=== PATIENT | female | born 1955 | race Caucasian/White ===

== ENCOUNTER 2018-04-02 12:14 | Day surgery (SDC) | payer BC ==
[2018-04-02] MEDS ORDERED: MIDAZOLAM HCL 2MG/2ML VIAL IV ONE (12:15)
[2018-04-02] MEDS ORDERED: LIDOCAINE 1% MDV (10MG/ML) 20ML VIAL SQ ONE (12:15)
[2018-04-02] MEDS ORDERED: FENTANYL PF 100MCG/2ML VIAL IV ONE (12:15)
--- NOTE | 2018-04-03 13:00 | Operative Note ---
DATE OF SURGERY: 04/02/2018 OPERATION: 1. ESOPHAGOGASTRODUODENOSCOPY with biopsy. 2. COLONOSCOPY with cold forceps polypectomy. PREOPERATIVE DIAGNOSIS: Globus sensation and colon cancer screening, average risk. POSTOPERATIVE DIAGNOSES: 1. Small hiatal hernia. 2. Gastric polyps. 3. Descending colon polyp. PREPARATION QUALITY: Good. ESTIMATED BLOOD LOSS: Minimum. SPECIMENS: Gastric polyps and descending colon polyp. PROCEDURE: After informed consent was obtained from the patient, she was placed in the left lateral decubitus position in the endoscopy suite, sedated and monitored by the department of anesthesia. A well-lubricated [id number] gastroscope was placed in the posterior oropharynx and under direct visualization passed to the proximal esophagus. The endoscope was advanced through the proximal, mid, and distal esophagus. The GE junction was unremarkable. There was a 5 cm hiatal hernia. The subdiaphragmatic stomach demonstrated several small polyps. The antrum, pylorus, duodenal bulb, and sweep were unremarkable. J-turn views of the proximal stomach were unremarkable other than the aforementioned hernia. The endoscope was then straightened. The gastric polyps were biopsied. No excessive bleeding was noted. The endoscope was then retracted from the patient with no new findings or irregularities were noted. Also, I did obtain photographs of the vocal cords which grossly appeared unremarkable. Digital rectal exam was unremarkable. A well-lubricated [id number] pediatric colonoscope was inserted into the rectum and advanced to the cecum. Preparation quality was excellent. The cecum, ileocecal valve, ascending colon, and transverse colon were unremarkable. The descending colon revealed a diminutive polyp removed with a cold forceps. The remainder of the descending colon, sigmoid colon, and rectum were unrevealing. J-turn views of the anorectum were unremarkable. The endoscope was straightened, the rectal ampulla deflated, and the endoscope was removed. RECOMMENDATIONS: The patient should resume her medications and diet. If she continues to have the globus sensation, perhaps an ENT evaluation would be helpful but no gross reflux changes were noted. No obvious vocal cord irregularity was noted. She will require repeat colonoscopy in 5-10 years pending tissue histology. As always, thank you for allowing me to participate in the healthcare of your patients. CC: DO ZULEMA Maxwell
== END 2018-04-02 13:30 | disposition home or self-care (01) ==
LOC: HOP 12:14
PROVIDERS: ATTEND Internal Medicine Gastroenterology
DX: Z12.11 Encounter for screening for malignant neoplasm of colon (principal); D12.4 Benign neoplasm of descending colon; R09.89 Other specified symptoms and signs involving the circulatory and respiratory systems; K44.9 Diaphragmatic hernia without obstruction or gangrene; K31.7 Polyp of stomach and duodenum
CPT/HCPCS: 45380; 43239; 00813; J3010